=== PATIENT | female | born 1960 | race Caucasian/White ===

== ENCOUNTER 2022-11-09 14:09 | Inpatient (IN) | payer OTHER ==
[~2022-11-09] VITALS: Ht 160 cm; Wt 75.7 kg
[2022-11-09] MEDS ORDERED: MORPHINE SULFATE INJ 2 MG/ML DISP.SYRIN IV ONE (15:00)
[2022-11-09] MEDS ORDERED: IV NS 0.9% 1,000 ML BAG IV ONE (15:00)
[2022-11-09] MEDS ORDERED: ONDANSETRON HCL/PF 4 MG/2 ML VIAL IVP ONE (15:00)
[2022-11-09] MEDS ORDERED: FAMOTIDINE/PF INJ 20 MG/2 ML VIAL IV ONE ×2 (15:00→15:28)
[2022-11-09] MEDS ORDERED: ONDANSETRON HCL/PF 4 MG/2 ML VIAL ONE (15:28)
[2022-11-09] MEDS ORDERED: MORPHINE SULFATE INJ 2 MG/ML DISP.SYRIN ONE (15:28)
[2022-11-09 15:37] LABS: BASOPHILS # (AUTO) 0.1 K/uL (0.0-0.2); BASOPHILS % (AUTO) 1.2 % (0.0-2.0); EOSINOPHILS % (AUTO) 3.6 % (0.0-6.0); HEMATOCRIT 46 % (33-45); HEMOGLOBIN 14.8 g/dL (11.5-14.8); LYMPHOCYTES # (AUTO) 2.9 K/uL (0.8-4.8); LYMPHOCYTES % (AUTO) 23.7 % (20.0-44.0); MEAN CORPUSCULAR HGB CONC 32 g/dl (31.0-36.0); MEAN CORPUSCULAR VOLUME 94 fL (82-100); MONOCYTES # (AUTO) 0.9 K/uL (0.1-1.30); MONOCYTES % (AUTO) 7.4 % (2.0-12.0); NEUTROPHILS # (AUTO) 7.7 K/uL (1.8-8.9); NEUTROPHILS % (AUTO) 64.1 % (43.0-81.0); PLATELET COUNT (AUTO) 284 K/uL (150-450); WHITE BLOOD COUNT (AUTO) 12.1 K/uL (4.3-11.0)
[2022-11-09 16:06] LABS: CALCIUM, SERUM 9.8 mg/dL (8.5-10.1); CARBON DIOXIDE 21 mmol/L (21-32); CHLORIDE 105 mmol/L (98-107); CREATININE 0.9 mg/dL (0.6-1.3); GLUCOSE 111 mg/dL (74-106); POTASSIUM 4.1 mmol/L (3.5-5.1); SODIUM SERUM 138 mmol/L (136-145); UREA NITROGEN, BLOOD 16 mg/dL (7-18)
[2022-11-09 16:14] LABS: ALANINE AMINOTRANSFERASE 37 U/L (12-78); ALKALINE PHOSPHATASE 66 U/L (46-116); ASPARTATE AMINOTRANSFERASE 19 U/L (15-37); BILIRUBIN,TOTAL 0.3 mg/dL (0.2-1.0); LIPASE 77 U/L (73-393); TOTAL PROTEIN, SERUM 7.8 g/dL (6.4-8.2)
[2022-11-09] MEDS ORDERED: IOHEXOL-300 100 ML VIAL IV ONE (16:16)
[2022-11-09] MEDS ORDERED: IV NS 0.9% 250 ML IV ONE (16:16)
[2022-11-09] MEDS ORDERED: ACETAMINOPHEN 325 MG TABLET PO PRN (19:00)
[2022-11-09] MEDS ORDERED: Z GUARD REMEDY 4 OZ OINT TP PRN (19:00)
[2022-11-09] MEDS ORDERED: HYDROCODONE/APAP 5/325MG TABLET PO PRN (19:00)
[2022-11-09] MEDS ORDERED: ONDANSETRON HCL/PF 4 MG/2 ML VIAL IVP PRN (19:00)
[2022-11-09] MEDS ORDERED: MAG HYDROX/AL HYDROX/SIMETH 30 ML UDC PO PRN (19:00)
[2022-11-09] MEDS ORDERED: MAGNESIUM HYDROXIDE 30 ML UDC PO PRN (19:00)
[2022-11-09] MEDS ORDERED: ZOLPIDEM TARTRATE 5 MG TABLET PO PRN (19:00)
[2022-11-09 20:07] VITALS: BP 127/70
[2022-11-09] MEDS: MORPHINE SULFATE INJ 2 MG/ML DISP.SYRIN IV PRN (20:23)
[2022-11-09] MEDS ORDERED: ALBUTEROL FS 2.5 MG/0.5 ML VIAL.NEB IH PRN (23:30)
[2022-11-09] MEDS: ALBUTEROL FS 2.5 MG/3 ML VIAL.NEB NEB PRN (23:57)
[2022-11-09] MEDS: IPRATROPIUM NEB FS 0.5 MG/2.5 ML AMPUL.NEB NEB PRN (23:57)
[2022-11-10] MEDS: IV 1/2NS 1000 ML 1,000 ML IV PRN (04:37)
[2022-11-10 05:56] LABS: BASOPHILS # (AUTO) 0.1 K/uL (0.0-0.2); EOSINOPHILS % (AUTO) 7.1 % (0.0-6.0); HEMATOCRIT 40 % (33-45); HEMOGLOBIN 13.5 g/dL (11.5-14.8); LYMPHOCYTES # (AUTO) 3.2 K/uL (0.8-4.8); LYMPHOCYTES % (AUTO) 30.5 % (20.0-44.0); MEAN CORPUSCULAR HGB CONC 34 g/dl (31.0-36.0); MEAN CORPUSCULAR VOLUME 91 fL (82-100); MONOCYTES # (AUTO) 0.8 K/uL (0.1-1.30); MONOCYTES % (AUTO) 7.3 % (2.0-12.0); NEUTROPHILS # (AUTO) 5.7 K/uL (1.8-8.9); NEUTROPHILS % (AUTO) 54.1 % (43.0-81.0); PLATELET COUNT (AUTO) 249 K/uL (150-450); WHITE BLOOD COUNT (AUTO) 10.5 K/uL (4.3-11.0)
[2022-11-10] MEDS: MORPHINE SULFATE INJ 2 MG/ML DISP.SYRIN IV PRN ×3 (06:00→19:53)
[2022-11-10 06:21] LABS: THYROID STIMULATING HORMONE 1.37 uIU/mL (0.358-3.74)
[2022-11-10 06:26] LABS: CALCIUM, SERUM 8.8 mg/dL (8.5-10.1); MAGNESIUM 2.1 mg/dL (1.8-2.4); POTASSIUM 3.6 mmol/L (3.5-5.1)
[2022-11-10 08:00] VITALS: BP 130/84
[2022-11-10] MEDS ORDERED: IOHEXOL-300 100 ML VIAL IV ONE (13:57)
[2022-11-10] MEDS ORDERED: CT SWABBABLE VALVE TRANS SET 1 EA INFUS.SET MC ONE (13:57)
[2022-11-10] MEDS ORDERED: ALBU18HF2 IH (14:32)
[2022-11-10] MEDS: ALBUTEROL FS 2.5 MG/3 ML VIAL.NEB NEB PRN (15:12)
[2022-11-10] MEDS: IPRATROPIUM NEB FS 0.5 MG/2.5 ML AMPUL.NEB NEB PRN (15:12)
[2022-11-10 16:00] VITALS: BP 128/76
[2022-11-10 20:00] VITALS: BP 112/92
[2022-11-11] MEDS: IPRATROPIUM NEB FS 0.5 MG/2.5 ML AMPUL.NEB NEB PRN ×2 (02:25→22:57)
[2022-11-11] MEDS: ALBUTEROL FS 2.5 MG/3 ML VIAL.NEB NEB PRN ×2 (02:25→22:57)
[2022-11-11] MEDS: IV 1/2NS 1000 ML 1,000 ML IV PRN (02:27)
[2022-11-11] MEDS: FAMOTIDINE (20 MG) 20 MG TABLET PO SCH ×3 (02:55→20:15)
[2022-11-11 07:30] VITALS: BP 128/76
[2022-11-11 08:07] LABS: AFP, TUMOR MARKER <1.8 ng/mL (0.0-9.2); CARBOHYDRATE AG 19-9 4 U/mL (0-35)
[2022-11-11] MEDS ORDERED: methylPREDNISolone SOD SUCC 40 MG/ML VIAL IV SCH (13:00)
[2022-11-11 15:30] VITALS: BP 150/87
[2022-11-11 20:54] VITALS: BP 134/77
[2022-11-11] MEDS ORDERED: GUAIFENESIN/CODEINE 10 ML UDC PO PRN (23:30)
[2022-11-12 06:07] LABS: CANCER AG, 15-3 18.4 U/mL (0.0-25.0)
[2022-11-12 07:00] VITALS: BP 133/77
[2022-11-12] MEDS: BUDESONIDE RESPULE INH 0.5 MG/2 ML AMPUL.NEB IH SCH ×3 (07:20→15:00)
[2022-11-12] MEDS: FAMOTIDINE (20 MG) 20 MG TABLET PO SCH (08:53)
[2022-11-12] MEDS: PANTOPRAZOLE 40 MG TABLET.DR PO SCH ×2 (15:25→21:38)
[2022-11-12] MEDS: cetrizine 10 MG TABLET PO SCH (15:26)
[2022-11-12 16:00] VITALS: BP 134/77
[2022-11-12 20:00] VITALS: BP_SYST 115; BP_SYST 124; BP_DIAS 66; BP_DIAS 80
[2022-11-12 20:06] VITALS: BP 124/80
[2022-11-12] MEDS: IPRATROPIUM NEB FS 0.5 MG/2.5 ML AMPUL.NEB NEB PRN (22:45)
[2022-11-12] MEDS: ALBUTEROL FS 2.5 MG/3 ML VIAL.NEB NEB PRN (22:45)
[2022-11-13] MEDS: BUDESONIDE RESPULE INH 0.5 MG/2 ML AMPUL.NEB IH SCH ×2 (07:55→16:00)
[2022-11-13 08:00] VITALS: BP 118/83
[2022-11-13] MEDS: cetrizine 10 MG TABLET PO SCH (08:12)
[2022-11-13] MEDS: PANTOPRAZOLE 40 MG TABLET.DR PO SCH ×2 (08:12→20:34)
[2022-11-13] MEDS ORDERED: GADOTERATE MEGLUMINE 10 MMOL/20 ML VIAL IV ONE (11:29)
[2022-11-13 16:00] VITALS: BP 111/71
[2022-11-13] MEDS: IPRATROPIUM NEB FS 0.5 MG/2.5 ML AMPUL.NEB NEB PRN (20:16)
[2022-11-13] MEDS: ALBUTEROL FS 2.5 MG/3 ML VIAL.NEB NEB PRN (20:16)
[2022-11-14] MEDS: ALBUTEROL FS 2.5 MG/3 ML VIAL.NEB NEB PRN (05:10)
[2022-11-14] MEDS: IPRATROPIUM NEB FS 0.5 MG/2.5 ML AMPUL.NEB NEB PRN ×2 (05:10→22:03)
[2022-11-14] MEDS: BUDESONIDE RESPULE INH 0.5 MG/2 ML AMPUL.NEB IH SCH ×2 (07:33→15:10)
[2022-11-14 08:00] VITALS: BP 138/86
[2022-11-14] MEDS: PANTOPRAZOLE 40 MG TABLET.DR PO SCH ×2 (08:10→20:10)
[2022-11-14] MEDS: cetrizine 10 MG TABLET PO SCH ×2 (08:11→08:17)
[2022-11-14 16:00] VITALS: BP 124/74
[2022-11-14 20:00] VITALS: BP 150/63
[2022-11-15] MEDS: BUDESONIDE RESPULE INH 0.5 MG/2 ML AMPUL.NEB IH SCH ×2 (07:05→14:10)
[2022-11-15] MEDS: cetrizine 10 MG TABLET PO SCH (09:00)
[2022-11-15 09:10] VITALS: BP 153/92
[2022-11-15 09:15] VITALS: BP 156/84
[2022-11-15] MEDS: PANTOPRAZOLE 40 MG TABLET.DR PO SCH (09:19)
[2022-11-15] MEDS ORDERED: ANESTHESIA TRAY IN PYXIS 1 EA TRAY MC ONE (09:45)
[2022-11-15] MEDS ORDERED: POTASSIUM CHLORIDE 20 MEQ TAB.PRT.SR PO SCH (10:00)
[2022-11-15] MEDS ORDERED: MAGNESIUM OXIDE 400 MG TABLET PO ONE (10:00)
[2022-11-15] MEDS ORDERED: SUCR1TAB31 PO (10:15)
[2022-11-15] MEDS ORDERED: PANT40TA49 PO (10:15)
[2022-11-15] MEDS ORDERED: FLUT1DIS3 INH (10:15)
[2022-11-15] MEDS ORDERED: PANTOPRAZOLE 40 MG TABLET.DR PO SCH (11:00)
[2022-11-16] MEDS ORDERED: PANTOPRAZOLE 40 MG TABLET.DR PO SCH (07:30)
== END 2022-11-15 15:15 | disposition home or self-care (01) | DRG 241 ==
LOC: ER 14:13 → MED 19:34
PROVIDERS: ADMIT Student in an Organized Health Care Education/Training Program; ATTEND Internal Medicine
PROC: 0DB68ZX Excision of Stomach, Via Natural or Artificial Opening Endoscopic, Diagnostic (ICD-10-PCS; principal; 2022-11-15)
DX: K26.9 Duodenal ulcer, unspecified as acute or chronic, without hemorrhage or perforation (principal); J96.01 Acute respiratory failure with hypoxia; J45.901 Unspecified asthma with (acute) exacerbation; K21.9 Gastro-esophageal reflux disease without esophagitis; K86.1 Other chronic pancreatitis; Z87.11 Personal history of peptic ulcer disease; Z20.822 Contact with and (suspected) exposure to COVID-19; D18.09 Hemangioma of other sites; K76.89 Other specified diseases of liver; R93.2 Abnormal findings on diagnostic imaging of liver and biliary tract; B96.81 Helicobacter pylori [H. pylori] as the cause of diseases classified elsewhere; K29.50 Unspecified chronic gastritis without bleeding
CPT/HCPCS: 36415; 71045-TC; 71260-TC; 74183; 76536-TC; 80048-TC; 80076-TC; 82105; 82378; 83615-TC; 83690-TC; 83735-TC; 84100-TC; 84439-TC; 84443-TC; 84484-TC; 85025-TC; 85610-TC; 85730-TC; 86300; 86301; 87081-TC; 88305-TC; 88313-TC; 88342; 94799-TC; 97110-TC; 97116-TC; 97530-TC; A4223; A9575; C9803; G0378; J2270; J2405; J2704; J3490; J7030; J7050; Q9967